=== PATIENT | male | born 1990 | race Caucasian/White ===

== ENCOUNTER 2024-02-03 20:58 | Emergency (ER) | payer OTHER ==
[~2024-02-03] VITALS: Ht 180.3 cm; Wt 74.8 kg
[2024-02-03 21:00] VITALS: PULSE 69; RESP 17; TEMP 98.5
[2024-02-03] MEDS: IBUPROFEN 600 MG TAB PO STA (22:20)
[2024-02-03] MEDS ORDERED: CIPRO500 MG PO (22:45)
[2024-02-03 22:55] VITALS: BP 135/82; PULSE 80; RESP 15; TEMP 98; O2SAT 99
== END 2024-02-03 22:58 | disposition home or self-care (01) ==
LOC: FSED 21:05
DX: N50.812 Left testicular pain (principal); R19.7 Diarrhea, unspecified
CPT/HCPCS: 76870; 80076; 85025; 93970; 99284